=== PATIENT | male | born 1990 | race American Indian/Alaskan Native ===

== ENCOUNTER 2017-05-03 14:26 | Emergency (ER) | payer OTHER ==
[2017-05-03] MEDS ORDERED: ZITHROMAX PO ONE (14:31)
[2017-05-03] MEDS ORDERED: XYLOCAINE 1% MPF 5 mL INFILTRATI ONE (14:31)
[2017-05-03] MEDS ORDERED: ROCEPHIN IM ONE (14:31)
[2017-05-03 14:35] VITALS: BP 126/89
--- NOTE | 2017-05-04 11:28 | Emergency Department Report ---
Entered by BOB CLARK, acting as scribe for ROSENDO WALDRON NP. ED Male HPI - General Chief complaint: Urogenital-Male Stated complaint: BURNING W/URINATION Time Seen by Provider: 05/03/17 14:31 Source: patient Mode of arrival: Ambulatory Limitations: No Limitations - History of Present Illness Initial comments: 26 y/o male presents with dysuria that started 3 days ago. Pt notes penile d/c now resolved but pt denies back pain, sore throat and abd pain. He notes previous Hx of STD and states Sx feel consistent with previous episode of Gonorrhea. MD Complaint: dysuria -: days(s) (3) Location: penis Radiation: none Severity: mild Severity scale (0 -10): 3 Quality: burning Consistency: constant Improves with: none Worsens with: urination denies other symptoms, discharge - Related Data Sexually active: Yes Previous Rx's Medication Instructions Recorded Last Taken Type Ibuprofen [Motrin 800 MG tab] 800 mg PO Q8HR PRN #30 tablet 05/02/16 Unknown Rx Sulfamethoxazole/Trimethoprim 1 each PO BID #20 tablet 05/02/16 Unknown Rx [Bactrim DS TAB] Allergies Allergy/AdvReac Type Severity Reaction Status Date / Time No Known Allergies Allergy Verified 05/02/16 21:06 ED Review of Systems Comment: All other systems reviewed and negative Constitutional: denies: chills, fever ENT: denies: ear pain, throat pain Respiratory: denies: cough Cardiovascular: denies: chest pain Gastrointestinal: denies: abdominal pain Genitourinary: dysuria, discharge Skin: denies: rash Neurological: denies: headache, numbness ED Past Medical Hx - Past Medical History Hx Psychiatric Treatment: Yes (ADHD, BIPOLAR,SCHIZO) - Social History Smoking Status: Current Every Day Smoker Substance Use Type: Alcohol, Marijuana - Medications Home Medications: Home Medications Medication Instructions Recorded Confirmed Last Taken Type Ibuprofen [Motrin 800 MG tab] 800 mg PO Q8HR PRN #30 tablet 05/02/16 Unknown Rx Sulfamethoxazole/Trimethoprim 1 each PO BID #20 tablet 05/02/16 Unknown Rx [Bactrim DS TAB] ED Physical Exam - General Limitations: No Limitations General appearance: alert, in no apparent distress - Head Head exam: Present: atraumatic, normocephalic - Eye Eye exam: Present: normal appearance, PERRL, EOMI Pupils: Present: normal accommodation - ENT ENT exam: Present: normal exam, normal external ear exam - Neck Neck exam: Present: normal inspection, full ROM. Absent: tenderness, meningismus, lymphadenopathy, thyromegaly - Respiratory Respiratory exam: Present: normal lung sounds bilaterally. Absent: respiratory distress, wheezes, rales, rhonchi, stridor - Cardiovascular Cardiovascular Exam: Present: regular rate, normal rhythm, normal heart sounds. Absent: bradycardia, tachycardia, irregular rhythm, systolic murmur, diastolic murmur, rubs, gallop - GI/Abdominal GI/Abdominal exam: Present: soft, normal bowel sounds. Absent: distended, tenderness, guarding, rebound, rigid, diminished bowel sounds, mass, bruit - Rectal Rectal exam: Present: deferred - Extremities Exam Extremities exam: Present: normal inspection, full ROM, normal capillary refill. Absent: tenderness, pedal edema, joint swelling, calf tenderness - Back Exam Back exam: Present: normal inspection, full ROM. Absent: tenderness, CVA tenderness (R), CVA tenderness (L), paraspinal tenderness, vertebral tenderness - Neurological Exam Neurological exam: Present: alert, oriented X3, normal gait. Absent: abnormal gait, motor sensory deficit - Psychiatric Psychiatric exam: Present: normal affect, normal mood - Skin Skin exam: Present: warm, dry, intact, normal color. Absent: rash ED Course Vital Signs 05/03/17 14:31 Temperature 98.6 F Pulse Rate 80 Respiratory 18 Rate Blood Pressure 126/89 O2 Sat by Pulse 100 Oximetry - Reevaluation(s) Reevaluation #1: 05/03/17 15:13 pt empirically treated for gc/ ct. pt aware he will need to follow up with full panel std testing - Pulse Oximetry Interpretation Digit-Finger Initial Pulse Oximetry Readin Actions Taken: none ED Medical Decision Making - Differential Diagnosis std, Critical Care Time: No ED Disposition Clinical Impression: Penile discharge, Concern about STD in male without diagnosis Disposition: - TO HOME OR SELFCARE Is pt being admited?: No Does the pt Need Aspirin: No Condition: Stable Instructions: Sexually Transmitted Diseases (ED), Safe Sex (ED) Additional Instructions: No sex x 7 days follow up with PCP or health dept for full panel STD testing. Partners will need testing/ treatment Return to the ED if worsening or concerns Referrals: PRIMARY CARE,MD [Primary Care Provider] - 3-5 Days Forms: Work/School Release Form(ED) This documentation as recorded by the EDUARDO begum KELLY,accurately reflects the service I personally performed and the decisions made by ,ROSENDO WALDRON , DENTAL LABORATORY SUPERVISOR.
== END 2017-05-03 15:22 | disposition home or self-care (01) ==
LOC: ED 14:26
DX: R36.9 Urethral discharge, unspecified (principal); F31.9 Bipolar disorder, unspecified; F20.9 Schizophrenia, unspecified; F17.200 Nicotine dependence, unspecified, uncomplicated; F12.90 Cannabis use, unspecified, uncomplicated
CPT/HCPCS: 96372; 99282; J0696

== ENCOUNTER 2022-05-10 20:44 | Emergency (ER) | payer SELFPAY ==
[2022-05-10 21:19] VITALS: BP 131/84
== END 2022-05-11 02:50 | disposition left against medical advice (07) ==
LOC: ED 20:44
DX: H91.90 Unspecified hearing loss, unspecified ear (principal); Z53.21 Procedure and treatment not carried out due to patient leaving prior to being seen by health care provider